=== PATIENT | male | born 1975 | race Caucasian/White ===

== ENCOUNTER 2018-03-22 23:56 | Observation (INO) | payer SELFPAY ==
[~2018-03-22] VITALS: Ht 185.4 cm; Wt 140.9 kg
[~2018-03-22 23:56] MED LIST: FLAGYL500 MG PO; HYDROCODONE-APA1 TAB PO; LEVAQUIN500 MG PO
[2018-03-23 00:16] VITALS: BP 167/95
--- NOTE | 2018-03-23 00:16 | NUR ---
1ST NITRO ADMINISTERED AT THIS TIEM. PT REPORTS PAIN 10/10 PRIOR TO ADMINISTERATION OF NITRO. BP 167/95 HR 89.
[2018-03-23 00:22] LABS: BASOPHILS 0.5 % (0-2); EOSINOPHILS 3.9 % (0-7); HEMATOCRIT 44.9 % (42.0-54.0); HEMOGLOBIN 15.6 g/dL (13.5-17.5); IMMATURE GRANULOCYTES 0.5 % (0-5); LYMPHOCYTES 29.2 % (15-50); MCH 31.4 pg (26.0-34.0); MCHC 34.7 g/dL (31.0-37.0); MCV 90.3 fL (80.0-100.0); MEAN PLATELET VOLUME 9.9 fL (7.4-10.4); NEUTROPHILS 57.9 % (40-80); PLATELET COUNT 308 10x3/uL (130-400); RBC 4.97 10x6/uL (4.20-6.10)
--- NOTE | 2018-03-23 00:23 | NUR ---
PT REPORTS CHEST PAIN 8/10 AT THIS TIME. PT BP 129/77 AT THIS TIME. HR 98
[2018-03-23 00:28] LABS: INR 0.97 (0.85-1.17); PROTIME 12.4 SECONDS (11.6-15.0)
[2018-03-23 00:29] LABS: APTT 40.7 SECONDS (22.8-39.4)
[2018-03-23 00:31] VITALS: BP 139/85
--- NOTE | 2018-03-23 00:31 | NUR ---
PT REPORTS PAIN IS 8/10 AT THIS TIME. DENIES RELIEF FROM NITRO. PT BP 139/85 HR 97 AT THIS TIME.
--- NOTE | 2018-03-23 00:37 | NUR ---
PT DENIES IMPROVEMENT IN CHEST PAIN WITH 3RD NITRO
[2018-03-23 00:43] LABS: ALBUMIN 3.6 g/dL (3.4-5.0); ALKALINE PHOSPHATASE 79 U/L (46-116); ALT (SGPT) 36 U/L (10-68); BILIRUBIN - TOTAL 0.33 mg/dL (0.2-1.3); CALC OSMOLALITY 281 mosm/kg (275-300); CALCIUM 9.5 mg/dL (8.5-10.1); CHLORIDE - SERUM 102 mmol/L (98-107); GLUCOSE 143 mg/dL (74-106); POTASSIUM - SERUM 4.5 mmol/L (3.5-5.1); PROTEIN - SERUM 7.5 g/dL (6.4-8.2); SODIUM 139 mmol/L (136-145); UREA NITROGEN 17 mg/dL (7-18); eGFR NON AFRICAN AMERICAN 87 mL/min (90-120)
[2018-03-23 00:47] LABS: CKMB 1.9 U/L (0.0-3.6); CREATINE KINASE 151 UL (21-232); TROPONIN-I < 0.017 ng/mL (0.000-0.060)
--- NOTE | 2018-03-23 01:42 | NUR ---
PT GIVEN ICE CHIPS. OK PER MONICA KU.
[2018-03-23 03:53] VITALS: BP 137/93
--- NOTE | 2018-03-23 04:01 | NUR ---
RECEIVED FROM ER, PT IS A&O X4, IV-LAC-SL, WILL KEEP NPO UNTIL SEEN BY , BED IS LOW, SRX2, CALL LIGHT IN REACH, WILL CONTINUE PLAN OF CARE
[2018-03-23 04:49] VITALS: BP 137/93; Ht 185.4 cm; Wt 140.9 kg
--- NOTE | 2018-03-23 07:24 | NUR ---
PT LYING IN BED RESTING. DID NOT WAKE I ENTERED AND DID NOT FURTHER DISTURB AT THIS TIME. CL INREACH. SRX2.
--- NOTE | 2018-03-23 08:00 | NUR ---
PT IS AMBULATORY, REFUSES SCDS.
[2018-03-23 08:20] VITALS: BP 104/47
--- NOTE | 2018-03-23 09:34 | NUR ---
RESTING QUIETLY NAD NOTED
--- NOTE | 2018-03-23 12:02 | NUR ---
PT AMBULATED OUT WITH . DID NOT INFORM ME WHILE I WENT ON A WHEELCHAIR SUN.
--- NOTE | 2018-03-24 10:07 | MORECARE ---
CASE MANAGEMENT DISCHARGE SUMMARY PATIENT: THALIA SANTOS UNIT: [id number] ADM DATE: 03/23/18 AGE: 43 : [birth year] SEX: M ROOM/BED: D.2113 AUTHOR: LD SALGADO PHYSICIAN: REFERRING PHYSICIAN: KAMI GRAFF MD DATE OF SERVICE: 03/24/18 Discharge Plan Patient Name: THALIA [facility]ANTOS [facility] [facility] 1975 Planned Disposition: Home Anticipated Discharge Date: 03/23/18 Discharge Date: 03/23/2018 Expected LOS: 1 Initial Reviewer: [email or web address] Initial Review Date: 03/24/2018 Generated: 03/24/18 11:07 am Patient Name: THALIA SANTOS Page [id number] at 1007 All edits/amendments must be made on the electronic document DICTATION DATE: 03/24/18 1007 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 RPT#: [id number] DC DATE:03/23/18 STATUS: DIS IN [facility] [address] [place] [address] END OF REPORT
--- NOTE | 2018-03-25 10:45 | HP ---
PATIENT: THALIA SANTOS MEDICAL RECORD: [id number] ACCOUNT: [id number] LOCATION:[address] : [birth year] ADMISSION DATE: 03/23/18 PCP: No PCP HISTORY AND PHYSICAL EXAMINATION DIAGNOSES: 1. Chest pain. 2. Hemophilia. HISTORY: This is a gentleman with no previous cardiac history. His only medical history is that of hemophilia. He presented with chest pain. He had multiple hours of chest pressure that was somewhat epigastric, somewhat in the lower sternum and mid sternum with radiation to his back. He had nitro. This did not resolve the chest discomfort. Morphine did resolve. He had an episode of nausea and vomiting as well. He is not having further episodes of the chest discomfort. His EKG is with no ST-T abnormalities. His troponin is normal. PHYSICAL EXAMINATION: GENERAL APPEARANCE: Well-nourished, well-developed, appears stated age. Level of distress, comfortable. PSYCHIATRIC: Mental status, alert, normal affect. Orientation, oriented to time, place and person. EYES: Lids and conjunctiva, noninjected. No discharge, no pallor. ENT: Lips, teeth, gums, normal dentition. Oropharynx, no cyanosis, no pallor. NECK: Carotid arteries, bilateral normal upstroke, no bruits, no thrills. JUGULAR VEINS: No jugular venous pressure or distention. CERVICAL LYMPH NODES: Nontender, nonenlarged. THYROID: Not enlarged. Nontender. No nodules. LUNGS: Respiratory effort, unlabored. CHEST: Normal curvature. No thoracic deformity. No chest wall tenderness. Percussion, resonant. Auscultation, clear. No wheezes, no rales, no rhonchi. CARDIOVASCULAR: Precordial exam, nondisplaced. No heaves or pericardial thrills. Rate and rhythm, regular. Heart sounds, normal S1, normal S2. No S3, no gallop, no rub. Systolic murmur, not heard. Diastolic murmur, not heard. EXTREMITIES: No cyanosis, no edema. Peripheral pulses, full and equal in all extremities, except as noted. No bruits appreciated. ABDOMEN: Soft, nondistended. Normal aorta. No bruit. Nontender. No masses. Liver, nontender, no hepatomegaly. Spleen, nontender, no splenomegaly. MUSCULOSKELETAL: No joint tenderness. No joint swelling. No erythema. NEUROLOGICAL: Normal gait, normal strength, normal tone. SKIN: Warm and dry. OVERALL IMPRESSION: Chest pain. He has really no cardiac risk factors other than his obesity. He most likely has GI etiology of the chest discomfort. We will set him up for stress testing and Cardiolite imaging as an outpatient. TRANSINT:[id number] Voice Confirmation ID: [id number] DOCUMENT ID: [id number] HISTORY AND PHYSICAL [id number] THALIA SANTOS, KAMI KINCAID at 1045 CC: [id number] DICTATION DATE: 03/23/18 1305 CELL INSTALLER: 03/23/18 1346 DIS IN 03/23/18 [facility] [address] [place] [address]
--- NOTE | 2018-03-25 10:45 | DS ---
PATIENT:THALIA SANTOS :79 MEDICAL RECORD: [id number] DISCHARGE SUMMARY ADMISSION DATE: 03/23/18 DISCHARGE DATE: 03/23/18 REASON FOR ADMISSION: Chest discomfort, shortness of breath, obesity. HISTORY AND HOSPITAL COURSE: This is a gentleman, who presents with chest discomfort and shortness of breath; however, his EKG is with no ST-T abnormalities. Troponin was normal. He was discharged home. We will follow up with stress testing, Cardiolite imaging and as an outpatient. TRANSINT:[id number] Voice Confirmation ID: [id number] DOCUMENT ID: [id number] KAMI GRAFF MD at 1045 CC: [id number] DICTATION DATE: 03/23/18 1305 DENTAL OFFICE RECEPTIONIST: 03/24/18 0201 DIS IN 03/23/18 [id number] [place] [address]
== END 2018-03-23 12:03 | disposition home or self-care (01) ==
LOC: D.ER 23:56 → D.M2 03-23 02:29 → OBSVTIME 03-23 02:29 → D.M2 03-23 12:03
PROVIDERS: Emergency Medicine; ADMIT Internal Medicine Interventional Cardiology
DX: R07.9 Chest pain, unspecified (principal); E66.9 Obesity, unspecified; Z68.41 Body mass index [BMI] 40.0-44.9, adult; D67 Hereditary factor IX deficiency

== ENCOUNTER 2019-09-15 04:48 | Observation (INO) | payer MEDICAID ==
[~2019-09-15] VITALS: Ht 185.4 cm; Wt 136.4 kg
[2019-09-15] VITALS (7 sets, daily range): BP systolic 133–177; BP diastolic 80–99; Ht 185.4 cm; Wt 136.4 kg
--- NOTE | 2019-09-15 05:52 | NUR ---
PT RATES CHEST PAIN 09/20. PT GIVEN ONE SL NITRO AT THIS TIME.
[2019-09-15 05:57] LABS: BASOPHILS 0.6 % (0-2); EOSINOPHILS 3.7 % (0-7); HEMATOCRIT 46.6 % (42.0-54.0); HEMOGLOBIN 15.8 g/dL (13.5-17.5); IMMATURE GRANULOCYTES 0.5 % (0-5); LYMPHOCYTES 27.1 % (15-50); MCHC 33.9 g/dL (31.0-37.0); MCV 91.6 fL (80.0-100.0); MEAN PLATELET VOLUME 9.9 fL (7.4-10.4); NEUTROPHILS 61.1 % (40-80); PLATELET COUNT 288 10x3/uL (130-400); RBC 5.09 10x6/uL (4.20-6.10); RDW 13.3 % (11.5-14.5); WBC 8.4 10x3/uL (4.8-10.8)
--- NOTE | 2019-09-15 05:57 | NUR ---
PT REPORTS NO RELIEF WITH NITRO. PAIN 09/20
[2019-09-15 06:12] LABS: CALC OSMOLALITY 278 mosm/kg (275-300); CALCIUM 9.1 mg/dL (8.5-10.1); CARBON DIOXIDE 27.2 mmol/L (21.0-32.0); CHLORIDE - SERUM 103 mmol/L (98-107); CREATININE - SERUM 1.1 mg/dL (0.6-1.3); GLUCOSE 141 mg/dL (74-106); POTASSIUM - SERUM 4.2 mmol/L (3.5-5.1); SODIUM 137 mmol/L (136-145); UREA NITROGEN 22 mg/dL (7-18); eGFR NON AFRICAN AMERICAN 78 mL/min (90-120)
[2019-09-15 06:27] LABS: ALBUMIN 3.5 g/dL (3.4-5.0); ALKALINE PHOSPHATASE 84 U/L (30-120); ALT (SGPT) 26 U/L (10-68); BILIRUBIN - TOTAL 0.17 mg/dL (0.2-1.3); C-REACTIVE PROTEIN 1.7 mg/dL (0.0-0.9); LIPASE 67 U/L (73-393); MAGNESIUM - SERUM 1.9 mg/dL (1.8-2.4); PRO BNP 10 pg/mL (0-125); PROTEIN - SERUM 7.5 g/dL (6.4-8.2); TROPONIN-I < 0.017 ng/mL (0.000-0.060)
[2019-09-15 06:31] LABS: APTT 42.4 SECONDS (22.8-39.4); INR 0.87 (0.85-1.17); PROTIME 11.8 SECONDS (11.6-15.0)
[2019-09-15 06:32] LABS: D-DIMER-QUANTITATIVE < 0.27 ug/mLFEU (0.20-0.54)
--- NOTE | 2019-09-15 07:39 | NUR ---
ASSUMED CARE REPORT TAKEN FROM SIMA SALCIDO
[2019-09-15 14:06] LABS: UDS - AMPHET NEGATIVE QUAL (NEGATIVE); UDS - BARB NEGATIVE QUAL (NEGATIVE); UDS - BENZO NEGATIVE QUAL (NEGATIVE); UDS - COCAINE NEGATIVE QUAL (NEGATIVE); UDS - OPIATE POSITIVE QUAL (NEGATIVE); UDS - PCP NEGATIVE QUAL (NEGATIVE); UDS - THC NEGATIVE QUAL (NEGATIVE)
--- NOTE | 2019-09-15 19:30 | NUR ---
RECEIVED BEDSIDE REPORT. PATIENT IS ALERT AND ORIENTED, RESTING COMFORTABLY IN BED. RESPIRATIONS ARE EVEN AND UNLABORED. NO S/S OF DISTRESS. NO C/O PAIN. CALL LIGHT WITHIN REACH. WILL CPOC.
[2019-09-16] VITALS: BP 116/83
[2019-09-16 04:00] VITALS: BP 122/79
[2019-09-16 05:30] LABS: BASOPHILS 0.6 % (0-2); EOSINOPHILS 4.1 % (0-7); HEMATOCRIT 44.8 % (42.0-54.0); HEMOGLOBIN 14.9 g/dL (13.5-17.5); IMMATURE GRANULOCYTES 0.6 % (0-5); MCH 30.7 pg (26.0-34.0); MCHC 33.3 g/dL (31.0-37.0); MCV 92.2 fL (80.0-100.0); MEAN PLATELET VOLUME 9.8 fL (7.4-10.4); MONOCYTES 5.8 % (2-11); NEUTROPHILS 59.9 % (40-80); PLATELET COUNT 277 10x3/uL (130-400); RBC 4.86 10x6/uL (4.20-6.10); RDW 13.5 % (11.5-14.5); WBC 8.6 10x3/uL (4.8-10.8)
[2019-09-16 06:05] LABS: CALC OSMOLALITY 278 mosm/kg (275-300); CALCIUM 8.7 mg/dL (8.5-10.1); CARBON DIOXIDE 29.1 mmol/L (21.0-32.0); CHLORIDE - SERUM 103 mmol/L (98-107); CREATININE - SERUM 1.1 mg/dL (0.6-1.3); GLUCOSE 130 mg/dL (74-106); POTASSIUM - SERUM 4.3 mmol/L (3.5-5.1); SODIUM 137 mmol/L (136-145); UREA NITROGEN 21 mg/dL (7-18); eGFR NON AFRICAN AMERICAN 78 mL/min (90-120)
[2019-09-16 09:04] VITALS: BP 130/72
[2019-09-16] MEDS ORDERED: NICODERM CQ1 EAC3 TRANSDERM (09:36)
--- NOTE | 2019-09-16 11:05 | NUR ---
IV AND TELEMETRY DCD. DC PLANS GIVEN. UNDERSTANDING VOICED. ESCORTED TO CAR BY W/C.
== END 2019-09-16 11:05 | disposition home or self-care (01) ==
LOC: D.ER 04:48 → D.M2 06:22 → OBSVTIME 06:22 → D.M2 06:22
PROVIDERS: Family Medicine; ADMIT Family Medicine; ATTEND Family Medicine
DX: I20.0 Unstable angina (principal); E66.01 Morbid (severe) obesity due to excess calories; D66 Hereditary factor VIII deficiency; Z72.0 Tobacco use